=== PATIENT | male | born 1950 | race Caucasian/White ===

== ENCOUNTER 2017-11-20 11:40 | Emergency (ER) | payer BC, MEDICARE ==
[2017-11-20] MEDS ORDERED: Aspirin 81 MG Tab.Chew PO ONE (12:18)
--- NOTE | 2017-11-20 12:24 | EDM.PDOC ---
ED HPI GENERAL MEDICAL PROBLEM - General Chief Complaint: Chest Pain Stated Complaint: CHEST PAIN THROUGH TO BACK Time Seen by Provider: 11/20/17 12:19 Source of Information: Reports: Patient History Limitations: Reports: No Limitations - History of Present Illness INITIAL COMMENTS - FREE TEXT/NARRATIVE: pt arrived with chest pain particularly with deep breathing He does not feel particularly sob. He has not fallen or injured himself. This started shortly after being on the treadmill last nite. r Onset: Other ( started at 11 pm last nite. ) Duration: Hour(s):, Getting Worse Location: Reports: Chest Associated Symptoms: Reports: Chest Pain, Other (pt hurts to take a deep breath but is not particularly sob. ) Middle Chest Pain Score (Numeric/FACES): 6 - Related Data Allergies Allergy/AdvReac Type Severity Reaction Status Date / Time No Known Allergies Allergy Verified 11/20/17 11:56 Home Meds: Home Meds Cholecalciferol (Vitamin D3) [Vitamin D3] 2,000 units PO DAILY 11/20/17 [History ] Lisinopril 10 mg PO DAILY 11/20/17 [History] Metoprolol Tartrate 50 mg PO BID 11/20/17 [History] Warfarin [Coumadin] 7.5 mg PO ASDIRECTED 11/20/17 [History] Warfarin [Coumadin] 10 mg PO ASDIRECTED 11/20/17 [History] Past Medical History Cardiovascular History: Reports: Afib, Hypertension Endocrine/Metabolic History: Reports: Diabetes, Type II - Past Surgical History Other HEENT Surgeries/Procedures: BRAIN ANEURYSM WITH A CLIP GI Surgical History: Reports: Bariatric Procedure Social & Family History - Tobacco Use Smoking Status *Q: Unknown Ever Smoked ED ROS GENERAL - Review of Systems Review Of Systems: See Below Constitutional: Reports: No Symptoms HEENT: Reports: No Symptoms Respiratory: Reports: Pleuritic Chest Pain, Other (Pt hurts to take a deep breath) Endocrine: Reports: No Symptoms GI/Abdominal: Reports: No Symptoms : Reports: No Symptoms Musculoskeletal: Reports: Other (pt has pain accross his chest when he takes a deep breath and he also has pain between the shoulder blades. ) Skin: Reports: No Symptoms ED EXAM, GENERAL - Physical Exam Exam: See Below Free Text/Narrative:: Pt has pain between the shoulder blades and pain accross his chest when he takes a deep breath. Exam Limited By: No Limitations General Appearance: Alert, Anxious, Moderate Distress Ears: Normal TMs Nose: Normal Inspection Throat/Mouth: Normal Inspection Head: Atraumatic Neck: Normal Inspection Respiratory/Chest: No Respiratory Distress Cardiovascular: Regular Rate, Rhythm GI/Abdominal: Soft, Non-Tender (Male) Exam: Deferred Rectal (Males) Exam: Deferred Back Exam: Normal Inspection Extremities: Pedal Edema, Other ( slight increas in the leg swelling. ) Neurological: Alert, Oriented, Normal Cognition Course - Vital Signs Last Recorded V/S: Last Vital Signs Temp 36.9 C 11/20/17 14:59 Pulse 94 11/20/17 14:59 Resp 16 11/20/17 14:59 BP 137/78 11/20/17 14:59 Pulse Ox 96 11/20/17 14:59 - Orders/Labs/Meds Orders: Active Orders 24 hr Category Date Time Status EKG Documentation Completion [RC] ASDIRECTED Care 11/20/17 12:18 Active Abdomen Ltd [US] Stat Exams 11/20/17 14:11 Taken EKG 12 Lead [EK] Routine Ther 11/20/17 12:18 Ordered Labs: Laboratory Tests 11/20/17 11/20/17 11/20/17 Range/Units 12:35 12:48 12:48 WBC 8.9 (4.5-11.0) K/uL RBC 4.72 (4.30-5.90) M/uL Hgb 14.0 (12.0-15.0) g/dL Hct 43.9 (40.0-54.0) % MCV 93 (80-98) fL MCH 30 (27-31) pg MCHC 32 (32-36) % Plt Count 161 (150-400) K/uL Neut % (Auto) 81 H (36-66) % Lymph % (Auto) 7 L (24-44) % [place] % (Auto) 11 H (2-6) % Eos % (Auto) 1 L (2-4) % Baso % (Auto) 0 (0-1) % PT 43.6 H (9.5-12.0) sec INR 3.85 H (0.80-1.20) Sodium (140-148) mmol/L Potassium (3.6-5.2) mmol/L Chloride (100-108) mmol/L Carbon Dioxide (21-32) mmol/L Anion Gap (5.0-14.0) mmol/L BUN (7-18) mg/dL Creatinine (0.8-1.3) mg/dL Est Cr Clr Drug Dosing mL/min Estimated GFR (MDRD) (>60) Glucose (74-106) mg/dL Calcium (8.5-10.1) mg/dL Total Bilirubin (0.2-1.0) mg/dL AST (15-37) U/L ALT (12-78) U/L Alkaline Phosphatase (46-116) U/L Creatine Kinase (39-308) U/L Troponin I < 0.017 (0.000-0.056) ng/mL C-Reactive Protein (0.0-0.3) mg/dL Total Protein (6.4-8.2) g/dL Albumin (3.4-5.0) g/dL Globulin (2.3-3.5) g/dL Albumin/Globulin Ratio (1.2-2.2) Urine Color Urine Appearance Urine pH (4.5-8.0) Ur Specific [place] (1.008-1.030) Urine Protein (NEGATIVE) mg/dL Urine Glucose (UA) (NEGATIVE) mg/dL Urine Ketones (NEGATIVE) mg/dL Urine Occult Blood (NEGATIVE) Urine Nitrite (NEGAITVE) Urine Bilirubin (NEGATIVE) Urine Urobilinogen (NORMAL) mg/dL Ur Leukocyte Esterase (NEGATIVE) Urine RBC (0-5) Urine WBC (0-5) Ur Epithelial Cells Amorphous Sediment Urine Bacteria Urine Mucus 11/20/17 11/20/17 11/20/17 Range/Units 12:48 13:10 13:11 WBC (4.5-11.0) K/uL RBC (4.30-5.90) M/uL Hgb (12.0-15.0) g/dL Hct (40.0-54.0) % MCV (80-98) fL MCH (27-31) pg MCHC (32-36) % Plt Count (150-400) K/uL Neut % (Auto) (36-66) % Lymph % (Auto) (24-44) % [place] % (Auto) (2-6) % Eos % (Auto) (2-4) % Baso % (Auto) (0-1) % PT (9.5-12.0) sec INR (0.80-1.20) Sodium 139 L (140-148) mmol/L Potassium 5.1 (3.6-5.2) mmol/L Chloride 106 (100-108) mmol/L Carbon Dioxide 25 (21-32) mmol/L Anion Gap 13.1 (5.0-14.0) mmol/L BUN 22 H (7-18) mg/dL Creatinine 1.4 H (0.8-1.3) mg/dL Est Cr Clr Drug Dosing 56.03 mL/min Estimated GFR (MDRD) 51 L (>60) Glucose 125 H (74-106) mg/dL Calcium 8.6 (8.5-10.1) mg/dL Total Bilirubin 0.6 (0.2-1.0) mg/dL AST 16 (15-37) U/L ALT 28 (12-78) U/L Alkaline Phosphatase 79 (46-116) U/L Creatine Kinase 120 (39-308) U/L Troponin I (0.000-0.056) ng/mL C-Reactive Protein 4.49 H (0.0-0.3) mg/dL Total Protein 7.0 (6.4-8.2) g/dL Albumin 3.0 L (3.4-5.0) g/dL Globulin 4.0 H (2.3-3.5) g/dL Albumin/Globulin Ratio 0.8 L (1.2-2.2) Urine Color Yellow Urine Appearance Slightly cloudy Urine pH 5.0 (4.5-8.0) Ur Specific [place] 1.010 (1.008-1.030) Urine Protein Negative (NEGATIVE) mg/dL Urine Glucose (UA) Normal (NEGATIVE) mg/dL Urine Ketones Negative (NEGATIVE) mg/dL Urine Occult Blood Negative (NEGATIVE) Urine Nitrite Negative (NEGAITVE) Urine Bilirubin Negative (NEGATIVE) Urine Urobilinogen Normal (NORMAL) mg/dL Ur Leukocyte Esterase Moderate (NEGATIVE) Urine RBC 0-5 (0-5) Urine WBC 40-50 H (0-5) Ur Epithelial Cells Not seen Amorphous Sediment Not seen Urine Bacteria Not seen Urine Mucus Not seen Meds: Medications Discontinued Medications Generic Name Dose Route Start Last Admin Trade Name Freq PRN Reason Stop Dose Admin Aspirin 324 mg 11/20/17 12:18 11/20/17 12:23 Aspirin PO 11/20/17 12:19 324 mg ONETIME ONE Administration Sodium Chloride 1,000 mls @ 999 mls/hr 11/20/17 14:30 Normal Saline IV ASDIRECTED [facility] Ketorolac Tromethamine 60 mg 11/20/17 13:34 11/20/17 14:02 Toradol IM 11/20/17 13:35 60 mg ONETIME ONE Administration - Re-Assessments/Exams Free Text/Narrative Re-Assessment/Exam: 11/20/17 15:08 pt had an US of the gb which was neg. He was given torodol 60mg im and he had great relief of the pleuritic discomfort. Departure - Departure Time of Disposition: 15:08 Disposition: Home, Self-Care 01 Condition: Fair Clinical Impression: Pleuritic chest pain Referrals: Marguerite Kelly MD [Primary Care Provider] - Forms: ED Department Discharge Care Plan Goals: hold coumadin for 1 day, --then resume usual dose, encourage deep breathing, . tylenol for discomfort. norco 5/325 q6h prn for pain # 10. Rtc if sig problems. - My Orders Last 24 Hours: My Active Orders 11/20/17 12:18 EKG Documentation Completion [RC] ASDIRECTED EKG 12 Lead [EK] Routine 11/20/17 14:11 Abdomen Ltd [US] Stat - Assessment/Plan Last 24 Hours: My Active Orders 11/20/17 12:18 EKG Documentation Completion [RC] ASDIRECTED EKG 12 Lead [EK] Routine 11/20/17 14:11 Abdomen Ltd [US] Stat
[2017-11-20] MEDS ORDERED: Ketorolac 60 MG/2 ML SDV IM ONE (13:34)
--- NOTE | 2017-11-20 13:59 | CR ---
Chest 2V HISTORY: pain with deep breathing. COMPARISON: 06/03/2013 FINDINGS: No acute infiltrate is identified. Borderline cardiomegaly is stable. No vascular redistribution or p leural fluid can be seen. I see no interstitial edema. Bony structures and soft tissues are unremarka ble. IMPRESSION: Stable borderline cardiomegaly without evidence for decompensation. No infiltrate or other acute ches t abnormality is identified.
[2017-11-20] MEDS ORDERED: Sodium Chloride 0.9% 1,000 ML IV SCH (14:30)
--- NOTE | 2017-11-21 09:00 | US ---
Abdomen Ltd HISTORY: pain between the shoulder blades and across the a FINDINGS: The patient's body habitus limits exam. The liver appears within normal limits in size and echogenici ty with no focal parenchymal abnormality identified. Gallbladder is within normal limits in size. No gallstones or gallbladder wall thickening can be seen. Wall thickness measures 3 mm. There is no ted cholecystic fluid. Sonographic Love sign is negative. Biliary ducts are not dilated. Common bile du ct measures 5 mm in diameter. The pancreas appears within normal limits in size and echogenicity with no mass or abnormal fluid col lections. Right kidney is within normal limits in size and echogenicity with no mass or hydronephrosi s. There is a 2.7 x 2.7 x 2.4 cm diameter cyst upper pole right kidney and a 3 x 3 x 4.7 cm diameter cyst mid right kidney The right kidney measures 11.9 cm in length. Abdominal aorta and inferior vena cava are unremarkable. Normal hepatopedal flow is seen in the portal vein. IMPRESSION: 2 right renal cysts are noted. No other sonographic abnormality of the right upper quadrant is identi fied.
== END 2017-11-20 15:31 | disposition home or self-care (01) ==
LOC: JP.ED 11:40
DX: R07.81 Pleurodynia (principal); I10 Essential (primary) hypertension; I48.91 Unspecified atrial fibrillation; E11.9 Type 2 diabetes mellitus without complications; Z79.01 Long term (current) use of anticoagulants; Z79.899 Other long term (current) drug therapy
CPT/HCPCS: 36415; 71020; 76705; 80053; 81001; 82550; 84484; 85025; 85610; 86140; 93005; 96372; 99285; A9270; J1885; 93010; 99284

== ENCOUNTER 2019-01-19 06:20 | Day surgery (SDC) | payer MEDICARE ==
[2019-01-19] MEDS ORDERED: Sodium Chloride 0.9% 1,000 ML IV SCH (07:00)
[2019-01-19] MEDS ORDERED: Propofol 200 MG/20 ML SDV ONE (07:15)
[2019-01-19] MEDS ORDERED: fentaNYL 100 MCG/2 ML SDV ONE (07:15)
[2019-01-19] MEDS ORDERED: Midazolam 1 MG/ML 2 ML SDV ONE (07:15)
[2019-01-19] MEDS ORDERED: Ondansetron 4 MG/2 ML SDV ONE (07:57)
--- NOTE | 2019-01-20 08:45 | OR ---
DATE OF PROCEDURE: 01/19/2019 SURGEON: Josiah Rouse MD PROCEDURE: Colonoscopy. FINDINGS: 1. Normal colonoscopy. 2. Poor colon prep. COMPLICATIONS: None. PHYSICAL CHEMIST: None. PREOPERATIVE DIAGNOSIS: Screening colonoscopy. POSTOPERATIVE DIAGNOSIS: Screening colonoscopy. RISKS: Risks, benefits, alternatives, and limitations including, but not limited to infection, bleeding, and perforation were explained to the patient, who wished to proceed. PROCEDURE IN DETAIL: The patient was placed in left lateral decubitus position. Digital rectal exam was performed without abnormality. The scope was introduced and advanced atraumatically to the ileocecal valve. The scope was brought back to the ascending, transverse, and descending colon and retroflexed. No old or new blood. No masses. No polyps. The prep was marginally acceptable. Approximately 90% luminal surface could be seen due to solid and liquid stool. On retroflex, there were no gross abnormalities. The patient tolerated the procedure well. Josiah Rouse MD /[id number]
== END 2019-01-19 09:30 | disposition home or self-care (01) ==
LOC: JP.SDS 06:20
PROVIDERS: ATTEND Surgery
DX: Z12.11 Encounter for screening for malignant neoplasm of colon (principal); I12.9 Hypertensive chronic kidney disease with stage 1 through stage 4 chronic kidney disease, or unspecified chronic kidney disease; E11.22 Type 2 diabetes mellitus with diabetic chronic kidney disease; N18.9 Chronic kidney disease, unspecified; I48.91 Unspecified atrial fibrillation; G47.33 Obstructive sleep apnea (adult) (pediatric); Z88.6 Allergy status to analgesic agent
CPT/HCPCS: 45378; J2250; J2405; J2704; J3010; J7030

== ENCOUNTER 2019-07-05 22:12 | Emergency (ER) | payer MEDICARE ==
[2019-07-05] MEDS ORDERED: Diltiazem 25 MG/5 ML SDV IVPUSH ONE (22:27)
[2019-07-05] MEDS ORDERED: Sodium Chloride 0.9% 1,000 ML IV SCH (22:30)
--- NOTE | 2019-07-05 22:31 | EDM.PDOC ---
ED HPI GENERAL MEDICAL PROBLEM - General Chief Complaint: Cardiovascular Problem Stated Complaint: STROKE Time Seen by Provider: 07/05/19 22:15 Source of Information: Reports: Patient, Family History Limitations: Reports: No Limitations - History of Present Illness INITIAL COMMENTS - FREE TEXT/NARRATIVE: 69-year-old male who has chronic atrial fibrillation, takes metoprolol for rate control and Coumadin, has rapid ventricular response on a frequent basis but at times it gets very fast and he feels lightheaded. Today he was feeling fine but over the past hour and a half to 2 hours he became lightheaded, and pale. His brought him in because she was concerned he might be having a stroke, but he was hooked up to a telemetry monitor and is in atrial fibrillation with RVR of 150-170. He denies any shortness of breath or chest pain, just feels lightheaded and generalized malaise. No fevers or chills, he was feeling fine up until 2 hours ago. No nausea or vomiting or diarrhea. Onset: Gradual (Symptoms started about 2 hours ago, not real suddenly) Associated Symptoms: Reports: Diaphoresis, Loss of Appetite, Malaise, Weakness. Denies: Chest Pain, Cough, Fever/Chills, Headaches, Shortness of Breath - Related Data Allergies Allergy/AdvReac Type Severity Reaction Status Date / Time NSAIDS (Non-Steroidal Allergy Other Verified 07/05/19 22:25 Anti-Inflamma Home Meds: Home Meds Cholecalciferol (Vitamin D3) [Vitamin D3] 2,000 units PO DAILY 11/20/17 [History ] Lisinopril 10 mg PO DAILY 11/20/17 [History] Metoprolol Tartrate 50 mg PO BID 11/20/17 [History] Warfarin [Coumadin] 5 mg PO ASDIRECTED 11/20/17 [History] Warfarin [Coumadin] 7.5 mg PO ASDIRECTED 11/20/17 [History] Allopurinol [Zyloprim] 150 mg PO DAILY 01/15/19 [History] Colchicine 0.6 mg PO DAILY 01/15/19 [History] Cyanocobalamin (Vitamin B-12) [B-12] 1 tab PO DAILY 01/15/19 [History] [place]-3 Fatty Acids/Fish Oil [Fish Oil 1,000 mg Softgel] 1 each PO DAILY [History] Past Medical History Cardiovascular History: Reports: Afib, Hypertension Respiratory History: Reports: Sleep Apnea Gastrointestinal History: Reports: GERD, Hemorrhoids Musculoskeletal History: Reports: Fracture, Gout, Osteoarthritis Endocrine/Metabolic History: Reports: Diabetes, Type II, Obesity/BMI 30+ - Infectious Disease History Infectious Disease History: Reports: Measles, Mumps - Past Surgical History HEENT Surgical History: Reports: Adenoidectomy, Tonsillectomy Other HEENT Surgeries/Procedures: BRAIN ANEURYSM WITH A CLIP Cardiovascular Surgical History: Reports: None Respiratory Surgical History: Reports: None GI Surgical History: Reports: Bariatric Procedure, Colonoscopy Male Surgical History: Reports: None Endocrine Surgical History: Reports: None Musculoskeletal Surgical History: Reports: None Social & Family History - Caffeine Use Caffeine Use: Reports: Coffee ED ROS GENERAL - Review of Systems Review Of Systems: See Below Constitutional: Reports: Malaise. Denies: Fever, Chills HEENT: Reports: No Symptoms Respiratory: Denies: Shortness of Breath Cardiovascular: Denies: Palpitations GI/Abdominal: Denies: Abdominal Pain, Diarrhea, Nausea, Vomiting Skin: Reports: Pallor, Diaphoresis Neurological: Reports: Weakness Psychiatric: Reports: No Symptoms ED EXAM, GENERAL - Physical Exam Exam: See Below Exam Limited By: No Limitations General Appearance: Alert, No Apparent Distress, Other (Patient is oriented and answering questions appropriately but looks anxious) Eye Exam: Bilateral Eye: Normal Inspection Head: Atraumatic Respiratory/Chest: No Respiratory Distress Cardiovascular: Tachycardia, Irregularly Irregular GI/Abdominal: Soft, Non-Tender, Other (Fairly obese) Extremities: Other (Plus pitting edema bilaterally, symmetric) Neurological: Alert, Oriented, No Motor/Sensory Deficits Skin Exam: Warm, Diaphoretic (Mild diaphoresis) EKG INTERPRETATION EKG Date: 07/05/19 Time: 22:20 Rhythm: A-Fib Rate (Beats/Min): 152 Course - Vital Signs Last Recorded V/S: Last Vital Signs Temp 94.9 F L 07/05/19 22:34 Pulse 102 H 07/05/19 23:24 Resp 21 H 07/05/19 23:24 BP 125/75 07/05/19 23:24 Pulse Ox 97 07/05/19 23:15 - Orders/Labs/Meds Orders: Active Orders 24 hr Category Date Time Status EKG Documentation Completion [RC] ASDIRECTED Care 07/05/19 22:26 Active EKG 12 Lead [EK] Routine Ther 07/05/19 22:26 Ordered Labs: Laboratory Tests 07/05/19 07/05/19 07/05/19 Range/Units 22:33 22:33 22:33 WBC 9.4 (4.5-11.0) K/uL RBC 4.48 (4.30-5.90) M/uL Hgb 13.9 (12.0-15.0) g/dL Hct 43.3 (40.0-54.0) % MCV 97 (80-98) fL MCH 31 (27-31) pg MCHC 32 (32-36) % Plt Count 250 (150-400) K/uL Neut % (Auto) 56 (36-66) % Lymph % (Auto) 25 (24-44) % [place] % (Auto) 15 H (2-6) % Eos % (Auto) 5 H (2-4) % Baso % (Auto) 1 (0-1) % PT 19.5 H (9.5-12.0) sec INR 1.87 H D (0.80-1.20) Sodium 137 L (140-148) mmol/L Potassium 4.3 (3.6-5.2) mmol/L Chloride 102 (100-108) mmol/L Carbon Dioxide 20 L (21-32) mmol/L Anion Gap 19.3 H (5.0-14.0) mmol/L BUN 33 H (7-18) mg/dL Creatinine 1.8 H (0.8-1.3) mg/dL Est Cr Clr Drug Dosing 42.41 mL/min Estimated GFR (MDRD) 38 L (>60) Glucose 69 L (74-106) mg/dL Calcium 8.4 L (8.5-10.1) mg/dL Total Bilirubin 0.3 (0.2-1.0) mg/dL AST 27 (15-37) U/L ALT 33 (12-78) U/L Alkaline Phosphatase 97 (46-116) U/L Troponin I (0.000-0.056) ng/mL Total Protein 7.2 (6.4-8.2) g/dL Albumin 3.3 L (3.4-5.0) g/dL Globulin 3.9 H (2.3-3.5) g/dL Albumin/Globulin Ratio 0.9 L (1.2-2.2) 07/05/19 Range/Units 22:33 WBC (4.5-11.0) K/uL RBC (4.30-5.90) M/uL Hgb (12.0-15.0) g/dL Hct (40.0-54.0) % MCV (80-98) fL MCH (27-31) pg MCHC (32-36) % Plt Count (150-400) K/uL Neut % (Auto) (36-66) % Lymph % (Auto) (24-44) % [place] % (Auto) (2-6) % Eos % (Auto) (2-4) % Baso % (Auto) (0-1) % PT (9.5-12.0) sec INR (0.80-1.20) Sodium (140-148) mmol/L Potassium (3.6-5.2) mmol/L Chloride (100-108) mmol/L Carbon Dioxide (21-32) mmol/L Anion Gap (5.0-14.0) mmol/L BUN (7-18) mg/dL Creatinine (0.8-1.3) mg/dL Est Cr Clr Drug Dosing mL/min Estimated GFR (MDRD) (>60) Glucose (74-106) mg/dL Calcium (8.5-10.1) mg/dL Total Bilirubin (0.2-1.0) mg/dL AST (15-37) U/L ALT (12-78) U/L Alkaline Phosphatase (46-116) U/L Troponin I < 0.017 (0.000-0.056) ng/mL Total Protein (6.4-8.2) g/dL Albumin (3.4-5.0) g/dL Globulin (2.3-3.5) g/dL Albumin/Globulin Ratio (1.2-2.2) Meds: Medications Discontinued Medications Generic Name Dose Route Start Last Admin Trade Name Freq PRN Reason Stop Dose Admin Diltiazem HCl 25 mg 07/05/19 22:27 07/05/19 22:32 Diltiazem IVPUSH 07/05/19 22:28 25 mg ONETIME ONE Administration Sodium Chloride 1,000 mls @ 125 mls/hr 07/05/19 22:30 07/05/19 22:33 Normal Saline IV 125 mls/hr ASDIRECTED JARRED Administration - Re-Assessments/Exams Free Text/Narrative Re-Assessment/Exam: 07/05/19 22:32 EKG confirmed atrial fibrillation with RVR. Patient has not missed any of his normal medication dosages. They have attempted cardioversion with him in the past but he just "goes back into atrial fib". We will push for rate control, check a CBC, CMP, troponin and INR and he will likely need cardiology consultation for medication adjustment to control rate. 07/05/19 22:48 An IV was started and the patient was given 25 mg of IV Cardizem. This very rapidly controlled his rate to 85-95, and he felt much better. Labs are pending. 07/05/19 23:20 The patient's rate remained extremely well controlled for the next hour. Labs returned reassuring, he does have renal insufficiency but they are not far off of his previous levels. Troponin was 0. I went through his medications again and found that he is supposed to be taking 50 mg of metoprolol twice daily and has been taking 100 mg just in the morning. He was able to ambulate around the emergency room without symptoms. He was given 50 mg of oral metoprolol, and would like to try to take his medication appropriately with 50 mg of metoprolol twice daily, and consult his investigator vice in the next week to arrange a checkup. He can return anytime if his symptoms recur. Departure - Departure Time of Disposition: 23:38 Disposition: Home, Self-Care 01 Clinical Impression: Atrial fibrillation with rapid ventricular response, Vasovagal near-syncope Instructions: Atrial Fibrillation, [id number] Referrals: Marguerite Kelly MD [Primary Care Provider] - Forms: ED Department Discharge Care Plan Goals: Continue your current medications but take 50 mg of metoprolol twice daily as prescribed. Return anytime if symptoms recur or you develop other acute concerns , otherwise recheck with your investigator vice when able to discuss medications and symptoms. - My Orders Last 24 Hours: My Active Orders 07/05/19 22:26 EKG Documentation Completion [RC] ASDIRECTED EKG 12 Lead [EK] Routine - Assessment/Plan Last 24 Hours: My Active Orders 07/05/19 22:26 EKG Documentation Completion [RC] ASDIRECTED EKG 12 Lead [EK] Routine
== END 2019-07-05 23:38 | disposition home or self-care (01) ==
LOC: JP.ED 22:12
DX: I48.91 Unspecified atrial fibrillation (principal); R55 Syncope and collapse; R53.1 Weakness; I10 Essential (primary) hypertension; E11.9 Type 2 diabetes mellitus without complications; K21.9 Gastro-esophageal reflux disease without esophagitis; M19.90 Unspecified osteoarthritis, unspecified site; E66.9 Obesity, unspecified; Z68.42 Body mass index [BMI] 45.0-49.9, adult; Z88.6 Allergy status to analgesic agent; Z79.01 Long term (current) use of anticoagulants; Z79.899 Other long term (current) drug therapy; Z79.82 Long term (current) use of aspirin; Z79.891 Long term (current) use of opiate analgesic
CPT/HCPCS: 36415; 80053; 84484; 85025; 85610; 93005; 96361; 96374; 99284; J3490; J7030; 93010

== ENCOUNTER 2021-05-10 11:37 | Emergency (ER) | payer MEDICARE ==
[2021-05-10] MEDS ORDERED: Sodium Chloride 0.9% 1,000 ML IV SCH (14:15)
--- NOTE | 2021-05-10 14:16 | EDM.PDOC ---
ED HPI GENERAL MEDICAL PROBLEM - General Chief Complaint: General Stated Complaint: CHILLS AND WEAKNESS Time Seen by Provider: 05/10/21 14:16 Source of Information: Reports: Patient History Limitations: Reports: No Limitations - History of Present Illness INITIAL COMMENTS - FREE TEXT/NARRATIVE: pt has had shaking chills and total body aching. He has not had joint swelling. He does have a history of UTI Onset: Gradual, Other ( started last nite. ) Duration: Hour(s): Location: Reports: Generalized Associated Symptoms: Reports: Malaise, Weakness, Other ( fever and chilling. ) - Related Data Allergies Allergy/AdvReac Type Severity Reaction Status Date / Time NSAIDS (Non-Steroidal Allergy Unknown Other Verified 05/10/21 13:53 Anti-Inflamma Home Meds: Home Meds Cholecalciferol (Vitamin D3) [Vitamin D3] 2,000 units PO DAILY 11/20/17 [History] Lisinopril 10 mg PO DAILY 11/20/17 [History] Metoprolol Tartrate 50 mg PO DAILY 11/20/17 [History] Warfarin [Coumadin] 5 mg PO DAILY 11/20/17 [History] Warfarin [Coumadin] 7.5 mg PO ASDIRECTED 11/20/17 [History] Colchicine 0.6 mg PO DAILY 01/15/19 [History] Cyanocobalamin (Vitamin B-12) [B-12] 1 tab PO DAILY 01/15/19 [History] [place]-3 Fatty Acids/Fish Oil [Fish Oil 1,000 mg Softgel] 2 each PO DAILY 01/15/19 [History] allopurinoL [Zyloprim] 150 mg PO DAILY 01/15/19 [History] Past Medical History Cardiovascular History: Reports: Afib, Hypertension Respiratory History: Reports: Sleep Apnea Gastrointestinal History: Reports: GERD, Hemorrhoids Genitourinary History: Reports: Chronic Renal Insuffiency, Renal Calculus Musculoskeletal History: Reports: Fracture, Gout, Osteoarthritis Neurological History: Reports: Cerebral Aneurysms, Other (See Below) Other Neuro History: aneurysm clipped 10-15 yrs ago Endocrine/Metabolic History: Reports: Diabetes, Type II, Obesity/BMI 30+ Hematologic History: Reports: Anticoagulation Therapy - Infectious Disease History Infectious Disease History: Reports: Measles, Mumps - Past Surgical History HEENT Surgical History: Reports: Adenoidectomy, Tonsillectomy Other HEENT Surgeries/Procedures: BRAIN ANEURYSM WITH A CLIP Cardiovascular Surgical History: Reports: None Respiratory Surgical History: Reports: None GI Surgical History: Reports: Bariatric Procedure, Colonoscopy Male Surgical History: Reports: None Endocrine Surgical History: Reports: None Musculoskeletal Surgical History: Reports: None Social & Family History - Tobacco Use Tobacco Use Status *Q: Never Tobacco User - Caffeine Use Caffeine Use: Reports: Coffee, Tea - Alcohol Use Days Per Week of Alcohol Use: 7 Number of Drinks Per Day: 2 Total Drinks Per Week: 14 - Recreational Drug Use Recreational Drug Use: No ED ROS GENERAL - Review of Systems Review Of Systems: See Below Constitutional: Reports: Fever, Chills, Malaise HEENT: Reports: No Symptoms Respiratory: Reports: No Symptoms Cardiovascular: Reports: No Symptoms Endocrine: Reports: No Symptoms GI/Abdominal: Reports: No Symptoms : Reports: No Symptoms Musculoskeletal: Reports: Muscle Pain, Muscle Stiffness Skin: Reports: No Symptoms Neurological: Reports: Dizziness Psychiatric: Reports: No Symptoms ED EXAM, GENERAL - Physical Exam Exam: See Below Free Text/Narrative:: pt has had shaking chills. He has not had a known tick exposure. Exam Limited By: No Limitations General Appearance: Alert, Anxious, Moderate Distress Ears: Normal TMs Nose: Normal Inspection Throat/Mouth: Normal Inspection Head: Atraumatic Neck: Normal Inspection Respiratory/Chest: No Respiratory Distress Cardiovascular: Regular Rate, Rhythm, Tachycardia GI/Abdominal: Soft, Non-Tender (Male) Exam: Deferred Rectal (Males) Exam: Deferred Back Exam: Other (pt is having back pain bilaterally. ) Extremities: Normal Inspection, Other (no evience of tick bites ) Neurological: Alert, Oriented, Normal Cognition Psychiatric: Anxious Course - Vital Signs Last Recorded V/S: Last Vital Signs Temp 37.6 C 05/10/21 15:51 Pulse 91 05/10/21 15:51 Resp 18 05/10/21 15:51 BP 117/46 L 05/10/21 15:51 Pulse Ox 98 05/10/21 15:51 - Orders/Labs/Meds Labs: Laboratory Tests 05/10/21 05/10/21 05/10/21 Range/Units 14:14 14:27 14:45 WBC 13.4 H (4.5-11.0) K/uL RBC 4.73 (4.30-5.90) M/uL Hgb 14.1 (12.0-15.0) g/dL Hct 44.7 (40.0-54.0) % MCV 95 (80-98) fL MCH 30 (27-31) pg MCHC 32 (32-36) % Plt Count 107 L (150-400) K/uL Neut % (Auto) 85.5 H (36-66) % Lymph % (Auto) 3.4 L (24-44) % Hayes % (Auto) 10.8 H (2-6) % Eos % (Auto) 0.1 L (2-4) % Baso % (Auto) 0.2 (0-1) % Sodium 137 L (140-148) mmol/L Potassium 4.7 (3.6-5.2) mmol/L Chloride 103 (100-108) mmol/L Carbon Dioxide 23 (21-32) mmol/L Anion Gap 15.7 H (5.0-14.0) mmol/L BUN 21 H (7-18) mg/dL Creatinine 1.5 H (0.8-1.3) mg/dL Est Cr Clr Drug Dosing 67.65 mL/min Estimated GFR (MDRD) 46 L (>60) Glucose 135 H (74-106) mg/dL Lactic Acid (0.4-2.0) mmol/L Calcium 8.4 L (8.5-10.1) mg/dL Total Bilirubin 1.1 H D (0.2-1.0) mg/dL AST 25 (15-37) U/L ALT 30 (12-78) U/L Alkaline Phosphatase 82 (46-116) U/L C-Reactive Protein 8.41 H (0.0-0.3) mg/dL Total Protein 7.0 (6.4-8.2) g/dL Albumin 3.1 L (3.4-5.0) g/dL Globulin 3.9 H (2.3-3.5) g/dL Albumin/Globulin Ratio 0.8 L (1.2-2.2) Urine Color Yellow (YELLOW) Urine Appearance Cloudy A (CLEAR) Urine pH 5.0 (5.0-8.0) Ur Specific [place] 1.020 (1.008-1.030) Urine Protein 100 H (NEGATIVE) mg/dL Urine Glucose (UA) Negative (NEGATIVE) mg/dL Urine Ketones Negative (NEGATIVE) mg/dL Urine Occult Blood Large H (NEGATIVE) Urine Nitrite Negative (NEGATIVE) Urine Bilirubin Negative (NEGATIVE) Urine Urobilinogen 0.2 (0.2-1.0) EU/dL Ur Leukocyte Esterase Small H (NEGATIVE) Urine RBC Semi-packed H (0-5) Urine WBC 20-30 H (0-5) Ur Epithelial Cells Rare Amorphous Sediment Rare Urine Bacteria Few Urine Mucus Rare Lyme Disease IgG/IgM (0.00-0.90) ISR HGE IgG Antibody (Neg:<1:64) HGE IgM Antibody (Neg:<1:20) 05/10/21 05/10/21 05/10/21 Range/Units 15:42 15:51 15:53 WBC (4.5-11.0) K/uL RBC (4.30-5.90) M/uL Hgb (12.0-15.0) g/dL Hct (40.0-54.0) % MCV (80-98) fL MCH (27-31) pg MCHC (32-36) % Plt Count (150-400) K/uL Neut % (Auto) (36-66) % Lymph % (Auto) (24-44) % [place] % (Auto) (2-6) % Eos % (Auto) (2-4) % Baso % (Auto) (0-1) % Sodium (140-148) mmol/L Potassium (3.6-5.2) mmol/L Chloride (100-108) mmol/L Carbon Dioxide (21-32) mmol/L Anion Gap (5.0-14.0) mmol/L BUN (7-18) mg/dL Creatinine (0.8-1.3) mg/dL Est Cr Clr Drug Dosing mL/min Estimated GFR (MDRD) (>60) Glucose (74-106) mg/dL Lactic Acid 1.5 (0.4-2.0) mmol/L Calcium (8.5-10.1) mg/dL Total Bilirubin (0.2-1.0) mg/dL AST (15-37) U/L ALT (12-78) U/L Alkaline Phosphatase (46-116) U/L C-Reactive Protein (0.0-0.3) mg/dL Total Protein (6.4-8.2) g/dL Albumin (3.4-5.0) g/dL Globulin (2.3-3.5) g/dL Albumin/Globulin Ratio (1.2-2.2) Urine Color (YELLOW) Urine Appearance (CLEAR) Urine pH (5.0-8.0) Ur Specific [place] (1.008-1.030) Urine Protein (NEGATIVE) mg/dL Urine Glucose (UA) (NEGATIVE) mg/dL Urine Ketones (NEGATIVE) mg/dL Urine Occult Blood (NEGATIVE) Urine Nitrite (NEGATIVE) Urine Bilirubin (NEGATIVE) Urine Urobilinogen (0.2-1.0) EU/dL Ur Leukocyte Esterase (NEGATIVE) Urine RBC (0-5) Urine WBC (0-5) Ur Epithelial Cells Amorphous Sediment Urine Bacteria Urine Mucus Lyme Disease IgG/IgM <0.91 (0.00-0.90) ISR HGE IgG Antibody Negative (Neg:<1:64) HGE IgM Antibody Negative (Neg:<1:20) Meds: Medications Discontinued Medications Generic Name Dose Route Start Last Admin Trade Name Darvin PRN Reason Stop Dose Admin Acetaminophen 650 mg 05/10/21 15:10 05/10/21 15:56 Acetaminophen 325 Mg Tab PO 05/10/21 15:11 650 mg BEDTIME ONE Administration Sodium Chloride 1,000 mls @ 999 mls/hr 05/10/21 14:15 05/10/21 14:50 Normal Saline IV 999 mls/hr ASDIRECTED JARRED Administration Ceftriaxone Sodium 2 gm/ 50 mls @ 100 mls/hr 05/10/21 15:49 05/10/21 16:06 Sodium Chloride IV 05/10/21 16:18 100 mls/hr ONETIME ONE Administration - Re-Assessments/Exams Free Text/Narrative Re-Assessment/Exam: 05/23/21 18:52 urine appears infected, wbc is 13,000. pt appears dehydrated. Tick studies were drawn. rocephen 2 grams were was given to the pt. 05/23/21 18:53 05/23/21 18:54 Departure - Departure Time of Disposition: 15:53 Disposition: Home, Self-Care 01 Condition: Fair Clinical Impression: UTI (urinary tract infection), Hematuria, At high risk for tick borne illness - Discharge Information Instructions: Urinary Tract Infection, Adult, Hematuria, Adult Referrals: Kathryn Joe DO [Primary Care Provider] - Forms: ED Department Discharge Care Plan Goals: push fluids, keep appt for [facility] to get stent out of ureter, will notify of tick born studies and the urine culture, doxycyline 100mg bid with food. will notify of the results of tick studies and urine culture. Sepsis Event Note (ED) - Evaluation Sepsis Screening Result: Possible Sepsis Risk
[2021-05-10] MEDS ORDERED: Acetaminophen 325 MG Tab PO ONE (15:10)
[2021-05-10] MEDS ORDERED: cefTRIAXone 2 GM in Sodium Chloride 0.9% 50 ML IV ONE (15:49)
[2021-05-14 12:12] LABS: LYME IGG/IGM AB <0.91 ISR (0.00-0.90)
[2021-05-16 16:11] LABS: HGE IGG TITER Negative (Neg:<1:64); HGE IGM TITER Negative (Neg:<1:20)
== END 2021-05-10 16:51 | disposition home or self-care (01) ==
LOC: JP.ED 11:37
DX: N39.0 Urinary tract infection, site not specified (principal); R31.9 Hematuria, unspecified; A93.8 Other specified arthropod-borne viral fevers; I48.91 Unspecified atrial fibrillation; I12.9 Hypertensive chronic kidney disease with stage 1 through stage 4 chronic kidney disease, or unspecified chronic kidney disease; E11.22 Type 2 diabetes mellitus with diabetic chronic kidney disease; N18.9 Chronic kidney disease, unspecified; M10.9 Gout, unspecified; E66.9 Obesity, unspecified; Z68.35 Body mass index [BMI] 35.0-35.9, adult; Z88.6 Allergy status to analgesic agent; Z79.01 Long term (current) use of anticoagulants; Z79.899 Other long term (current) drug therapy
CPT/HCPCS: 36415; 80053; 81001; 83605; 85025; 86140; 86618; 86666; 87086; 96365; 99283; A9270; J0696; J7030

== ENCOUNTER 2022-07-14 08:11 | Inpatient (IN) | payer MEDICARE ==
[2022-07-14] MEDS: Lactated Ringers 1,000 ML IV SCH ×2 (09:00→16:26)
[2022-07-14] MEDS ORDERED: cefTRIAXone 2 GM in Sodium Chloride 0.9% 50 ML IV SCH ×2 (09:00→09:30)
[2022-07-14] MEDS ORDERED: Ondansetron 4 MG/2 ML SDV IVPUSH ONE (09:09)
[2022-07-14] MEDS ORDERED: Acetaminophen 325 MG Tab PO ONE (09:17)
[2022-07-14 09:29] LABS: ESTIMATED GFR 40 mL/min (>60)
[2022-07-14] MEDS ORDERED: Lactated Ringers 1,000 ML IV ONE (10:13)
[2022-07-14] MEDS ORDERED: Diltiazem 25 MG/5 ML SDV IVPUSH ONE (10:14)
[2022-07-14] MEDS ORDERED: Promethazine 6.25 MG in Sodium Chloride 0.9% 50 ML IV ONE (11:30)
[2022-07-14] MEDS ORDERED: Diltiazem 100 MG in Sodium Chloride 0.9% 100 ML IV SCH (13:00)
[2022-07-14] MEDS ORDERED: Levofloxacin/Dextrose 5%-Water 500 MG in Premix Bag 1 BAG IV ONE (13:39)
[2022-07-14] MEDS ORDERED: Lactated Ringers 1,000 ML IV SCH (14:15)
[2022-07-14] MEDS ORDERED: Ondansetron 4 MG Tab.DIS PO PRN (14:28)
[2022-07-14] MEDS ORDERED: Magnesium Hydroxide 400 MG/5 ML Susp 30 ML Cup PO PRN (14:28)
[2022-07-14] MEDS ORDERED: diphenhydrAMINE 25 MG Cap PO PRN (14:28)
[2022-07-14] MEDS ORDERED: Promethazine 6.25 MG in Sodium Chloride 0.9% 50 ML IV PRN (14:28)
[2022-07-14] MEDS ORDERED: Acetaminophen 500 MG Tab PO PRN (14:28)
[2022-07-14] MEDS ORDERED: Ondansetron 4 MG/2 ML SDV IV PRN (14:28)
[2022-07-14] MEDS ORDERED: Phytonadione 5 MG Tab PO ONE (15:00)
[2022-07-14] MEDS: Acetaminophen 325 MG Tab PO PRN ×2 (15:53→19:57)
[2022-07-14] MEDS: Sodium Chloride 0.9% 1,000 ML IV SCH (16:22)
[2022-07-14] MEDS ORDERED: Vancomycin 2 GM in Sodium Chloride 0.9% 500 ML IV ONE (19:33)
[2022-07-14] MEDS ORDERED: Water For Injection, Sterile 40 ML ONE (20:00)
[2022-07-14] MEDS: Lactobacillus Rhamnosus GG (Probiotic) Cap PO SCH (20:30)
[2022-07-15] MEDS: Acetaminophen 325 MG Tab PO PRN ×4 (00:22→16:09)
[2022-07-15] MEDS: Sodium Chloride 0.9% 1,000 ML IV SCH ×3 (02:16→19:18)
[2022-07-15] MEDS: Allopurinol 100 MG Tab PO SCH (08:54)
[2022-07-15] MEDS: Colchicine 0.6 MG Tab PO SCH (08:54)
[2022-07-15] MEDS: Cyanocobalamin (Vitamin B12) 1,000 MCG Tab PO SCH (08:55)
[2022-07-15] MEDS: Lactobacillus Rhamnosus GG (Probiotic) Cap PO SCH ×2 (08:55→21:04)
[2022-07-15] MEDS ORDERED: cefTRIAXone 2 GM in Sodium Chloride 0.9% 50 ML IV SCH (09:00)
[2022-07-15] MEDS ORDERED: Metoprolol Succinate 50 MG Tab.ER PO SCH (09:00)
[2022-07-15] MEDS ORDERED: Hydrocortisone Sodium Succinate 100 MG/2 ML SDV IVPUSH ONE (09:00)
[2022-07-15] MEDS ORDERED: LORazepam 0.5 MG Tab PO PRN (10:07)
[2022-07-15] MEDS: Metoprolol Succinate 50 MG Tab.ER PO SCH (11:47)
[2022-07-15] MEDS: Acetaminophen 500 MG Tab PO PRN (21:04)
[2022-07-15] MEDS: diphenhydrAMINE 25 MG Cap PO PRN (21:04)
[2022-07-15] MEDS ORDERED: Albuterol 0.083% 2.5 MG/3 ML Neb Soln NEB PRN (21:22)
[2022-07-15] MEDS ORDERED: Furosemide 40 MG/4 ML VIAL IVPUSH ONE (21:23)
[2022-07-16] MEDS: Acetaminophen 500 MG Tab PO PRN ×2 (03:59→21:04)
[2022-07-16] MEDS: Allopurinol 100 MG Tab PO SCH (09:14)
[2022-07-16] MEDS: Lactobacillus Rhamnosus GG (Probiotic) Cap PO SCH ×2 (09:14→21:04)
[2022-07-16] MEDS: Cyanocobalamin (Vitamin B12) 1,000 MCG Tab PO SCH (09:15)
[2022-07-16] MEDS: Metoprolol Succinate 50 MG Tab.ER PO SCH ×2 (09:16→21:05)
[2022-07-16] MEDS ORDERED: Levofloxacin/Dextrose 5%-Water 500 MG in Premix Bag 1 BAG IV SCH (14:00)
[2022-07-16] MEDS ORDERED: LORazepam 0.5 MG Tab PO PRN (15:32)
[2022-07-16] MEDS: Albuterol/Ipratropium 3.0-0.5 MG/3 ML Neb Soln NEB SCH ×2 (15:58→21:05)
[2022-07-16] MEDS: cefTRIAXone 1 GM in Sodium Chloride 0.9% 50 ML IV SCH (20:12)
[2022-07-16] MEDS: diphenhydrAMINE 25 MG Cap PO PRN (21:04)
[2022-07-17] MEDS: Albuterol/Ipratropium 3.0-0.5 MG/3 ML Neb Soln NEB SCH ×4 (06:05→21:17)
[2022-07-17] MEDS: Allopurinol 100 MG Tab PO SCH (09:29)
[2022-07-17] MEDS: Colchicine 0.6 MG Tab PO SCH (09:30)
[2022-07-17] MEDS: Metoprolol Succinate 50 MG Tab.ER PO SCH (09:31)
[2022-07-17] MEDS: Cyanocobalamin (Vitamin B12) 1,000 MCG Tab PO SCH (09:32)
[2022-07-17] MEDS: Lactobacillus Rhamnosus GG (Probiotic) Cap PO SCH ×2 (09:33→21:17)
[2022-07-17] MEDS: Warfarin 2.5 MG Tab PO SCH (16:00)
[2022-07-17] MEDS: cefTRIAXone 1 GM in Sodium Chloride 0.9% 50 ML IV SCH (19:34)
[2022-07-17] MEDS: Metoprolol Succinate 25 MG Tab.ER PO SCH (21:17)
[2022-07-17] MEDS: Acetaminophen 500 MG Tab PO PRN (21:18)
[2022-07-17] MEDS: diphenhydrAMINE 25 MG Cap PO PRN (21:18)
[2022-07-18] MEDS: Albuterol/Ipratropium 3.0-0.5 MG/3 ML Neb Soln NEB SCH ×4 (07:15→20:16)
[2022-07-18] MEDS: Lactobacillus Rhamnosus GG (Probiotic) Cap PO SCH ×2 (10:16→20:08)
[2022-07-18] MEDS: Colchicine 0.6 MG Tab PO SCH (10:17)
[2022-07-18] MEDS: Metoprolol Succinate 25 MG Tab.ER PO SCH ×2 (10:18→20:08)
[2022-07-18] MEDS: Allopurinol 100 MG Tab PO SCH (10:23)
[2022-07-18] MEDS: Cyanocobalamin (Vitamin B12) 1,000 MCG Tab PO SCH (13:06)
[2022-07-18] MEDS: Warfarin 2.5 MG Tab PO SCH (13:06)
[2022-07-18] MEDS: cefTRIAXone 1 GM in Sodium Chloride 0.9% 50 ML IV SCH (20:09)
[2022-07-18] MEDS: Acetaminophen 500 MG Tab PO PRN (22:35)
[2022-07-18] MEDS: diphenhydrAMINE 25 MG Cap PO PRN (22:36)
[2022-07-19] MEDS: Albuterol/Ipratropium 3.0-0.5 MG/3 ML Neb Soln NEB SCH ×5 (07:01→21:53)
[2022-07-19] MEDS: Metoprolol Succinate 50 MG Tab.ER PO SCH (08:42)
[2022-07-19] MEDS: Colchicine 0.6 MG Tab PO SCH (08:42)
[2022-07-19] MEDS: Lactobacillus Rhamnosus GG (Probiotic) Cap PO SCH ×2 (08:42→21:41)
[2022-07-19] MEDS: Allopurinol 100 MG Tab PO SCH (08:43)
[2022-07-19] MEDS: Cyanocobalamin (Vitamin B12) 1,000 MCG Tab PO SCH (08:43)
[2022-07-19] MEDS: Warfarin 2.5 MG Tab PO SCH (12:50)
[2022-07-19] MEDS: Cephalexin 250 MG Cap PO SCH ×2 (15:38→21:42)
[2022-07-19] MEDS: diphenhydrAMINE 25 MG Cap PO PRN (21:41)
[2022-07-19] MEDS ORDERED: Benzocaine/Cetylpyridinium/Menthol Lozenge MUCMEM PRN (22:27)
[2022-07-19] MEDS ORDERED: Benzocaine/Cetylpyridinium/Menthol Lozenge ONE (22:36)
[2022-07-20] MEDS: Cephalexin 250 MG Cap PO SCH ×2 (04:46→09:52)
[2022-07-20] MEDS: Albuterol/Ipratropium 3.0-0.5 MG/3 ML Neb Soln NEB SCH ×2 (07:25→10:56)
[2022-07-20] MEDS: Metoprolol Succinate 50 MG Tab.ER PO SCH (08:18)
[2022-07-20] MEDS: Colchicine 0.6 MG Tab PO SCH (08:18)
[2022-07-20] MEDS: Lactobacillus Rhamnosus GG (Probiotic) Cap PO SCH (08:18)
[2022-07-20] MEDS: Cyanocobalamin (Vitamin B12) 1,000 MCG Tab PO SCH (08:20)
[2022-07-20] MEDS: Allopurinol 100 MG Tab PO SCH (08:20)
[2022-07-20] MEDS: Warfarin 2.5 MG Tab PO SCH (12:21)
== END 2022-07-20 13:30 | disposition home or self-care (01) | DRG 872 ==
LOC: JP.ED 08:11 → JP.ICU 13:40
PROVIDERS: ADMIT Internal Medicine; ATTEND Hospitalist
DX: A40.8 Other streptococcal sepsis (principal); A41.9 Sepsis, unspecified organism; N17.9 Acute kidney failure, unspecified; Z68.41 Body mass index [BMI] 40.0-44.9, adult; E87.2 Acidosis; N39.0 Urinary tract infection, site not specified; R65.20 Severe sepsis without septic shock; Z66 Do not resuscitate; N18.31 Chronic kidney disease, stage 3a; G47.33 Obstructive sleep apnea (adult) (pediatric); I48.91 Unspecified atrial fibrillation; I95.9 Hypotension, unspecified; G47.30 Sleep apnea, unspecified; E87.5 Hyperkalemia; K21.9 Gastro-esophageal reflux disease without esophagitis; I12.9 Hypertensive chronic kidney disease with stage 1 through stage 4 chronic kidney disease, or unspecified chronic kidney disease; Z87.442 Personal history of urinary calculi; E11.22 Type 2 diabetes mellitus with diabetic chronic kidney disease; N18.9 Chronic kidney disease, unspecified; M19.90 Unspecified osteoarthritis, unspecified site; M10.9 Gout, unspecified; Z88.8 Allergy status to other drugs, medicaments and biological substances; Z79.01 Long term (current) use of anticoagulants; Z79.899 Other long term (current) drug therapy; Z20.822 Contact with and (suspected) exposure to COVID-19
CPT/HCPCS: 36415; 74176; 80053; 81001; 83605 ×2; 84145; 85025; 85610; 86140; 87040 ×2; 87077 ×2; 87086; 96361; 96365; 96375; 99284; A9270; J0696; J2405; J2550; J3490 ×3; J7120 ×2; U0002; 80048; 80202; 85027; 94640; 99223; 99232; 99238; 99283; J0713; J1720; J1940; J1956; J3370; J7030; J7040; J7050; J7620

== ENCOUNTER 2023-01-27 18:44 | Emergency (ER) | payer MEDICARE ==
[2023-01-27 20:19] LABS: ESTIMATED GFR 50 mL/min (>60)
[2023-01-27] MEDS ORDERED: cefTRIAXone 1 GM, Lidocaine 1% 2.1 ML IM ONE ×2 (20:49)
== END 2023-01-27 21:21 | disposition home or self-care (01) ==
LOC: JP.ED 18:44
DX: N39.0 Urinary tract infection, site not specified (principal); I48.91 Unspecified atrial fibrillation; I12.9 Hypertensive chronic kidney disease with stage 1 through stage 4 chronic kidney disease, or unspecified chronic kidney disease; N18.31 Chronic kidney disease, stage 3a; E11.22 Type 2 diabetes mellitus with diabetic chronic kidney disease; E66.9 Obesity, unspecified; Z68.43 Body mass index [BMI] 50.0-59.9, adult; Z79.01 Long term (current) use of anticoagulants; Z79.899 Other long term (current) drug therapy; Z88.8 Allergy status to other drugs, medicaments and biological substances
CPT/HCPCS: 36415; 80053; 81001; 83605; 85025; 87086; 87088; 87186; 96372; 99283; J0696